=== PATIENT | male | born 1960 | race African-American/Black ===

== ENCOUNTER → 2016-10-07 | Outpatient (CLI) | payer OTHER ==
[~2016-10-07] MED LIST: ATEN-100 PO; GLUCTAB PO; GLYB1.2538 PO; HYDR-3533 PO; LOVA20TA PO; ROBA750T3 PO
--- NOTE | 2016-10-08 07:06 | EKG ---
Date Performed: 10/07/2016 Time Performed: 09:18:18 PTAGE: 56 years EKG: SINUS BRADYCARDIA WITH FIRST DEGREE AV BLOCK MARKED LEFT AXIS DEVIATION CONSIDER ANTEROSEPT AL MYOCARDIAL INFARCTION , OF INDETERMINATE AGE ABNORMAL ECG NO PREVIOUS TRACING DOCTOR: Ricky Espinoza Interpretating Date/Time 10/08/2016 07:05:50
== END ==
LOC: HCAV 08:58
PROVIDERS: ATTEND Family Medicine
DX: R01.1 Cardiac murmur, unspecified (principal)
CPT/HCPCS: 93005